=== PATIENT | female | born 1980 | race Two or more races ===

== ENCOUNTER 2022-04-18 14:40 | Observation (INO) | payer MEDICAID ==
[2022-04-18] MEDS ORDERED: PREN-96 PO (14:53)
== END 2022-04-18 15:23 | disposition home or self-care (01) ==
LOC: LDRP 14:40 → UNDOADMOB 14:40 → LDRP 14:48 → UNDODISOB 15:23
PROVIDERS: ADMIT Obstetrics & Gynecology; ATTEND Obstetrics & Gynecology
DX: O23.42 Unspecified infection of urinary tract in pregnancy, second trimester (principal); N39.0 Urinary tract infection, site not specified; O62.9 Abnormality of forces of labor, unspecified; O26.852 Spotting complicating pregnancy, second trimester; Z3A.19 19 weeks gestation of pregnancy
CPT/HCPCS: 59025; 81002; G0378